=== PATIENT | female | born 1985 | race American Indian/Alaskan Native ===

== ENCOUNTER 2017-12-06 09:57 | Outpatient (CLI) | payer MEDICARE ==
--- NOTE | 2017-12-06 12:05 | XRay Report ---
ROUTINE CHEST, TWO VIEWS: HISTORY: Pneumonia, persistent cough. Cardiomegaly is stable since 11/23/16. Bilateral pulmonary edema or infiltrates have improved and nearly resolved since the previous exam. No consolidation, large pleural effusion or pneumothorax is identified. The bony structures are grossly intact. IMPRESSION: Cardiomegaly and bilateral pulmonary edema/infiltrates. Mild improvement is noted since 11/23/16 in the lung findings.
== END 2017-12-06 09:58 | disposition home or self-care (01) ==
LOC: XRAY 09:57
PROVIDERS: ATTEND Nurse Practitioner Acute Care
DX: I51.7 Cardiomegaly (principal); R05 Cough; Z87.01 Personal history of pneumonia (recurrent)
CPT/HCPCS: 71046

== ENCOUNTER 2018-09-23 15:28 | Emergency (ER) | payer MEDICARE ==
[2018-09-23] MEDS ORDERED: ZOFRAN IV ONE (16:00)
[2018-09-23] MEDS ORDERED: SUBLIMAZE IV ONE (16:00)
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
[2018-09-23 17:01] LABS: Hemoglobin 10.1 gm/dl (10.1-14.3); Red Blood Count 3.88 M/mm3 (3.65-5.03)
[2018-09-23 17:02] LABS: Basophils % (Auto) 1.5 % (0.0-1.8); Eosinophils % (Auto) 2.7 % (0.0-4.3); Hematocrit 31.4 % (30.3-42.9); Lymphocytes # (Auto) 21.4 K/mm3 (1.2-5.4); Lymphocytes % (Auto) 21.4 % (13.4-35.0); Mean Corpuscular HGB Conc 32 % (30-34); Mean Corpuscular Volume 81 fl (79-97); Mean Platelet Volume 9.7 fl (6-12); Monocytes # (Auto) 5.1 K/mm3 (0.0-0.8); Monocytes % (Auto) 5.1 % (0.0-7.3); Platelet Count 158 K/mm3 (140-440); Red Cell Distribution Width 19.7 % (13.2-15.2)
[2018-09-23 17:03] LABS: Basophils # (Auto) 1.5 K/mm3 (0.0-0.1); Eosinophils # (Auto) 2.7 K/mm3 (0.0-0.4)
[2018-09-23 17:17] LABS: Calcium 9.3 mg/dL (8.4-10.2)
[2018-09-23] MEDS ORDERED: HumuLIN R IV ONE (17:20)
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
--- NOTE | 2018-09-23 18:15 | XRay Report ---
FINAL REPORT EXAM: XR CHEST ROUTINE 2V HISTORY: transient hypoxia TECHNIQUE: PA and lateral views of the chest Comparison: Chest x-ray dated October 18, 2015 FINDINGS: There prominence of the interstitial markings in both lungs with the appearance of bilateral areas of central pulmonary consolidation. There is prominence of the pulmonary venous vasculature suggestive of pulmonary venous congestion. There is no evidence of pneumothorax. The cardiac silhouette is enlarged. The thoracic aorta is unremarkable. The bony structures are unremarkable. IMPRESSION: 1. Enlarged cardiac silhouette with bilateral interstitial and airspace process and evidence of pulmo nary venous congestion.. The appearance is suggestive of CHF. An infectious process cannot entirely b e excluded.
[2018-09-23 18:27] VITALS: BP 146/118
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
== END 2018-09-23 18:40 | disposition left against medical advice (07) ==
LOC: ED 15:28
DX: S40.012A Contusion of left shoulder, initial encounter (principal); S80.11XA Contusion of right lower leg, initial encounter; R09.02 Hypoxemia; J81.1 Chronic pulmonary edema; J45.909 Unspecified asthma, uncomplicated; I12.0 Hypertensive chronic kidney disease with stage 5 chronic kidney disease or end stage renal disease; E11.65 Type 2 diabetes mellitus with hyperglycemia; E11.22 Type 2 diabetes mellitus with diabetic chronic kidney disease; N18.6 End stage renal disease; Z99.2 Dependence on renal dialysis; Z79.4 Long term (current) use of insulin; V49.49XA Driver injured in collision with other motor vehicles in traffic accident, initial encounter; Y93.89 Activity, other specified; Y92.488 Other paved roadways as the place of occurrence of the external cause; Y99.8 Other external cause status
CPT/HCPCS: 36415; 71046; 72125; 73030; 73590; 80048; 82803; 82805; 82962; 84703; 85025; 96374; 96375; 99285; J2405; J3010; J1815

== ENCOUNTER 2018-10-19 21:48 | Inpatient (IN) | payer MEDICARE ==
[2018-10-19] MEDS ORDERED: ASPIRIN PO ONE (22:08)
--- NOTE | 2018-10-19 22:11 | Emergency Department Report ---
Blank Doc - Documentation Documentation: This is a 33 y.o. female that presents with chest pain, lightheadedness, and SOB for a few days. PMH of ESRD, DM, HTN, and asthma. This initial assessment diagnostic orders/clinical plan/treatment (s) is/Are subject change based on patient's health status, clinical progression and re- assessment by fellow clinical providers in the ED. Further treatment and work-up at subsequent clinical providers discretion. Patient/guardians urged not to elope from their condition may be serious if not clinically assessed and managed. Initial order include: labs, ekg Main ED for further evaluation.
[2018-10-19 22:44] LABS: Calcium 8.7 mg/dL (8.4-10.2)
[2018-10-19 22:55] LABS: Basophils # (Auto) 0.1 K/mm3 (0.0-0.1); Basophils % (Auto) 1.4 % (0.0-1.8); Eosinophils # (Auto) 0.3 K/mm3 (0.0-0.4); Eosinophils % (Auto) 5.8 % (0.0-4.3); Hematocrit 34.4 % (30.3-42.9); Hemoglobin 11.1 gm/dl (10.1-14.3); Lymphocytes % (Auto) 19.3 % (13.4-35.0); Mean Corpuscular HGB Conc 32 % (30-34); Mean Corpuscular Volume 81 fl (79-97); Monocytes # (Auto) 0.3 K/mm3 (0.0-0.8); Monocytes % (Auto) 6.1 % (0.0-7.3); Platelet Count 140 K/mm3 (140-440); Red Blood Count 4.23 M/mm3 (3.65-5.03)
[2018-10-19 22:56] LABS: Red Cell Distribution Width 21.1 % (13.2-15.2)
[2018-10-19 23:00] LABS: Chol/HDL Ratio 1.77 %
--- NOTE | 2018-10-20 00:31 | Emergency Department Report ---
ED General Adult HPI - General Chief complaint: Chest Pain Stated complaint: CP/PEDRO LUIS/LIGHTHEADED Time Seen by Provider: 10/19/18 22:06 Source: patient Mode of arrival: Ambulatory Limitations: No Limitations - History of Present Illness Initial comments: Patient is a 33-year-old female past medical history of end-stage renal disease Monday who presents with chest pain shortness of breath as her gallbladder last couple days. Patient states that chest pain is an 8 out of 10 as an achy type of pain she also has some nausea with this chest pain nothing makes the chest pain better and nothing makes it worse. She states that she last got dialysis on . - Related Data Home Medications Medication Instructions Recorded Confirmed Last Taken Insulin NPH Human Isophane 8 unit SQ QAM 04/21/14 10/15/15 10/14/15 [HumuLIN N] Insulin NPH Human Isophane 10 units SQ QHS 04/21/14 10/15/15 10/14/15 [HumuLIN N] Cinacalcet [Sensipar] 30 mg PO QDAY 09/09/14 05/30/16 1 Day Ago ~05/27/16 NIFEdipine XL [Procardia Xl] 60 mg PO QDAY 03/04/16 05/30/16 1 Day Ago ~05/27/16 Previous Rx's Medication Instructions Recorded Last Taken Type Calcium Acetate 1 tab PO TIDWM #90 capsule 07/28/14 1 Day Ago Rx ~05/27/16 Sevelamer Carbonate [Renvela] 800 mg PO TIDWM #60 tablet 07/28/14 1 Day Ago Rx ~05/27/16 Lisinopril [Zestril TAB] 1 tab PO BID #60 tablet 09/13/14 1 Day Ago Rx ~05/27/16 cloNIDine [Catapres] 0.3 mg PO TID #90 tablet 09/13/14 1 Day Ago Rx ~05/27/16 hydrALAZINE [Apresoline TAB] 50 mg PO Q8H #90 tab 09/13/14 1 Day Ago Rx ~05/27/16 Metoprolol [Lopressor TAB] 100 mg PO BID #60 tablet 10/20/15 1 Day Ago Rx ~05/27/16 Omeprazole Magnesium [PriLOSEC Otc] 20 mg PO QDAY #10 tablet. 05/28/1603/05 Rx Carbamide Peroxide 6.5% [Ear Wax 5 drops AU BID #1 bottle 06/01/16 Unknown Rx Drops] Insulin Glargine [Lantus VIAL] 30 units SUB-Q DAILY #100 units 06/01/16 Unknown Rx Insulin Glulisine [Apidra] 5 units SUB-Q AC #100 units 06/01/16 Unknown Rx Aspirin [Aspirin BABY CHEW TAB] 81 mg PO QDAY 30 Days tab.chew 11/25/16 Unknown Rx AtorvaSTATin [Lipitor] 20 mg PO QHS #30 tablet 11/25/16 Unknown Rx Allergies Allergy/AdvReac Type Severity Reaction Status Date / Time No Known Allergies Allergy Verified 12/31/13 07:49 ED Review of Systems ROS: Stated complaint: CP/PEDRO LUIS/LIGHTHEADED Other details as noted in HPI Constitutional: denies: chills, fever Eyes: denies: eye pain, eye discharge, vision change ENT: denies: ear pain, throat pain Respiratory: shortness of breath. denies: cough, wheezing Cardiovascular: chest pain. denies: palpitations Endocrine: no symptoms reported Gastrointestinal: denies: abdominal pain, nausea, diarrhea Genitourinary: denies: urgency, dysuria, discharge Musculoskeletal: denies: back pain, joint swelling, arthralgia Skin: denies: rash, lesions Neurological: denies: headache, weakness, paresthesias Psychiatric: denies: anxiety, depression Hematological/Lymphatic: denies: easy bleeding, easy bruising ED Past Medical Hx - Past Medical History Previous Medical History?: Yes Hx Hypertension: Yes Hx Diabetes: Yes Hx Renal Disease: Yes (ESRD on HD,T-Th-S,LUE Shunt) Hx Seizures: Yes (elevated bp) Hx Asthma: Yes Additional medical history: DIALYSIS PT. - Surgical History Past Surgical History?: Yes Additional Surgical History: x2 - Social History Smoking Status: Never Smoker Substance Use Type: None - Medications Home Medications: Home Medications Medication Instructions Recorded Confirmed Last Taken Type Insulin NPH Human Isophane 8 unit SQ QAM 04/21/14 10/15/15 10/14/15 History [HumuLIN N] Insulin NPH Human Isophane 10 units SQ QHS 04/21/14 10/15/15 10/14/15 History [HumuLIN N] Calcium Acetate 1 tab PO TIDWM #90 capsule 12/08/14 10/10/16 1 Day Ago Rx ~05/27/16 Sevelamer Carbonate [Renvela] 800 mg PO TIDWM #60 tablet 07/28/14 05/30/16 1 Day Ago Rx ~05/27/16 Cinacalcet [Sensipar] 30 mg PO QDAY 09/09/14 05/30/16 1 Day Ago History ~05/27/16 Lisinopril [Zestril TAB] 1 tab PO BID #60 tablet 09/13/14 05/30/16 1 Day Ago Rx ~05/27/16 cloNIDine [Catapres] 0.3 mg PO TID #90 tablet 09/13/14 05/30/16 1 Day Ago Rx ~05/27/16 hydrALAZINE [Apresoline TAB] 50 mg PO Q8H #90 tab 09/13/14 05/30/16 1 Day Ago Rx ~05/27/16 Metoprolol [Lopressor TAB] 100 mg PO BID #60 tablet 10/20/15 05/30/16 1 Day Ago Rx ~05/27/16 NIFEdipine XL [Procardia Xl] 60 mg PO QDAY 03/04/16 05/30/16 1 Day Ago History ~05/27/16 Omeprazole Magnesium [PriLOSEC Otc] 20 mg PO QDAY #10 tablet. 05/28/16 05/30/16 05/27/16 Rx Carbamide Peroxide 6.5% [Ear Wax 5 drops AU BID #1 bottle 06/01/16 Unknown Rx Drops] Insulin Glargine [Lantus VIAL] 30 units SUB-Q DAILY #100 units 06/01/16 Unknown Rx Insulin Glulisine [Apidra] 5 units SUB-Q AC #100 units 06/01/16 Unknown Rx Aspirin [Aspirin BABY CHEW TAB] 81 mg PO QDAY 30 Days tab.chew 11/25/16 Unknown Rx AtorvaSTATin [Lipitor] 20 mg PO QHS #30 tablet 11/25/16 Unknown Rx ED Physical Exam - General Limitations: No Limitations General appearance: alert, in no apparent distress - Head Head exam: Present: atraumatic, normocephalic - Eye Eye exam: Present: normal appearance - ENT ENT exam: Present: mucous membranes moist - Neck Neck exam: Present: normal inspection - Respiratory Respiratory exam: Present: normal lung sounds bilaterally. Absent: respiratory distress - Cardiovascular Cardiovascular Exam: Present: regular rate, normal rhythm. Absent: systolic murmur, diastolic murmur, rubs, gallop - GI/Abdominal GI/Abdominal exam: Present: soft, normal bowel sounds - Extremities Exam Extremities exam: Present: normal inspection - Back Exam Back exam: Present: normal inspection - Neurological Exam Neurological exam: Present: alert, oriented X3 - Psychiatric Psychiatric exam: Present: normal affect, normal mood - Skin Skin exam: Present: warm, dry, intact, normal color. Absent: rash ED Course Vital Signs 10/19/18 22:06 Temperature 97.9 F Pulse Rate 58 L Respiratory 18 Rate Blood Pressure 142/71 O2 Sat by Pulse 97 Oximetry - Consultations Consultation #1: 10/20/18 02:[address] Anguiano non food receiving clerk about the patient he states that he will see the patient in the morning. ED Medical Decision Making - Lab Data Result diagrams: 10/19/18 22:20 10/19/18 22:20 Lab Results 10/19/18 10/19/18 10/20/18 Range/Units 22:20 22:20 00:55 WBC 5.4 (4.5-11.0) K/mm3 RBC 4.23 (3.65-5.03) M/mm3 Hgb 11.1 (10.1-14.3) gm/dl Hct 34.4 (30.3-42.9) % MCV 81 (79-97) fl MCH 26 L (28-32) pg MCHC 32 (30-34) % RDW 21.1 H (13.2-15.2) % Plt Count 140 (140-440) K/mm3 Lymph % (Auto) 19.3 (13.4-35.0) % Hubbard % (Auto) 6.1 (0.0-7.3) % Eos % (Auto) 5.8 H (0.0-4.3) % Baso % (Auto) 1.4 (0.0-1.8) % Lymph # 1.0 L (1.2-5.4) K/mm3 Hubbard # 0.3 (0.0-0.8) K/mm3 Eos # 0.3 (0.0-0.4) K/mm3 Baso # 0.1 (0.0-0.1) K/mm3 Seg Neutrophils % 67.4 (40.0-70.0) % Seg Neutrophils # 3.6 (1.8-7.7) K/mm3 Sodium 138 (137-145) mmol/L Potassium 3.0 L (3.6-5.0) mmol/L Chloride 92.4 L (98-107) mmol/L Carbon Dioxide 30 (22-30) mmol/L Anion Gap 19 mmol/L BUN 25 H (7-17) mg/dL Creatinine 6.3 H (0.7-1.2) mg/dL Estimated GFR 9 ml/min BUN/Creatinine Ratio 4 % Glucose 124 H (65-100) mg/dL POC Glucose 84 (70-105) Calcium 8.7 (8.4-10.2) mg/dL Troponin T 0.251 H* (0.00-0.029) ng/mL Triglycerides 54 (2-149) mg/dL Cholesterol 153 (50-199) mg/dL LDL Cholesterol Direct 66 (50-130) mg/dL HDL Cholesterol 86 H (40-59) mg/dL Cholesterol/HDL Ratio 1.77 % - EKG Data -: EKG Interpreted by Pa - EKG Data 10/20/18 02:20 KG shows sinus rhythm, left atrial enlargement LVH and prolonged QT interval - Radiology Data Radiology results: report reviewed, image reviewed Chest x-ray: Shows stable cardiomegaly and bilateral pulmonary infiltrates - Medical Decision Making Chief medical diagnosis: Non-STEMI Differential medical diagnosis: Pulmonary edema, secondary to end-stage renal disease,Uremia, hypokalemia Critical Care Time: Yes (35) Critical care time in (mins) excluding proc time.: 35 Critical care attestation.: If time is entered above; I have spent that time in minutes in the direct care of this critically ill patient, excluding procedure time. Critical care time spent with consultants 5 minutes Critical care time spent at patient's bedside 30 minutes ED Disposition Clinical Impression: NSTEMI (non-ST elevated myocardial infarction), ESRD on hemodialysis, End stage renal disease, Uremia Pulmonary edema Qualifiers: Chronicity: acute Qualified Code(s): J81.0 - Acute pulmonary edema Disposition: OP ADMIT IP TO THIS HOSP Is pt being admited?: Yes Does the pt Need Aspirin: No Condition: Stable Instructions: Pulmonary Edema (ED) Referrals: CADE CARPIO MD [Primary Care Provider] - 3-5 Days
[2018-10-20] MEDS ORDERED: SUBLIMAZE IV ONE (01:34)
[2018-10-20] MEDS ORDERED: ZOFRAN IV ONE (01:39)
--- NOTE | 2018-10-20 01:55 | XRay Report ---
PROCEDURE: XR CHEST ROUTINE 2V TECHNIQUE: PA and lateral chest radiographs were obtained. HISTORY: chest pain COMPARISONS: 09/23/2018. FINDINGS: Heart: The heart is markedly enlarged.. Mediastinum/Vessels: The lungs remain diffusely congested.. Lungs/Pleural space: There is stable extensive bilateral airspace disease. Pleural fluid is not seen .. Bony thorax: No acute osseous abnormality. IMPRESSION: Stable cardiomegaly with diffuse bilateral airspace disease.. Whether the findings on th e basis of pulmonary edema versus bilateral pneumonia is uncertain. This document is electronically signed by Brandon Ac MD., October 20 2018 01:52:44 AM ET
[2018-10-20] MEDS ORDERED: BABY ASPIRIN PO ONE (02:22)
[2018-10-20] MEDS ORDERED: TYLENOL PO PRN (02:40)
[2018-10-20] MEDS ORDERED: ZOFRAN IV PRN (02:40)
[2018-10-20] MEDS ORDERED: D50W (25GM) Syringe IV PRN (02:40)
[2018-10-20] MEDS ORDERED: SODIUM CHLORIDE FLUSH SYRINGE 10 ML IV PRN (02:40)
--- NOTE | 2018-10-20 02:49 | History and Physical Report ---
History of Present Illness History of present illness: 33 year old woman with history of end-stage renal disease on dialysis Monday, , Monday, hypertension, diabetes, asthma on home oxygen comes emergency room with complaints of chest pain. Patient is in the epigastric area with episode 2 days ago, sharp, constant, intensity 5/10, no radiation, chemotherapy admitted for exacerbating or relieving factors. Admits to shortness of breath, palpitation. She had a stress test done in 2016 which was negative Review of systems Constitutional: no weight loss, chills, fever Ears, eyes, nose, mouth and throat: no nasal congestion, no nasal discharge, no sinus pressure, no vision change, no red eye. Neck: No neck pain or rigidity. Cardiovascular: no palpitations, chest pain Respiratory: no cough, shortness of breath Gastrointestinal: no hematochezia, abdominal pain Genitourinary : no frequency , no hematuria Musculoskeletal: no joint swelling or muscle ache Integumentary: no rash, no pruritis Neurological: no parathesias, no focal weakness Endocrine: no cold or heat intolerance, no polyuria or polydipsia Hematologic/Lymphatic: no easy bruising, no easy bleeding, no gland swelling Allergic/Immunologic: no urticaria, no angioedema. PAST MEDICAL HISTORY: end-stage renal disease on dialysis Monday, , Monday, hypertension, diabetes, asthma on home oxygen PAST SURGICAL HISTORY: 2, AV fistula SOCIAL HISTORY: Denies alcohol, drugs, tobacco FAMILY HISTORY: Hypertension Medications and Allergies Allergies Allergy/AdvReac Type Severity Reaction Status Date / Time No Known Allergies Allergy Verified 12/31/13 07:49 Home Medications Medication Instructions Recorded Confirmed Last Taken Type Insulin NPH Human Isophane 10 units SQ TIDWM 04/21/14 10/20/18 1 Day Ago History [HumuLIN N] ~10/19/18 Sevelamer Carbonate [Renvela] 800 mg PO TIDWM #60 tablet 07/28/14 10/20/18 1 Day Ago Rx ~10/19/18 cloNIDine [Catapres] 0.3 mg PO TID #90 tablet 09/13/14 10/20/18 1 Day Ago Rx ~10/19/18 hydrALAZINE [Apresoline TAB] 50 mg PO Q8H #90 tab 09/13/14 10/20/18 1 Day Ago Rx ~10/19/18 Metoprolol [Lopressor TAB] 100 mg PO BID #60 tablet 10/20/15 10/20/18 1 Day Ago Rx ~10/19/18 NIFEdipine XL [Procardia Xl] 60 mg PO QDAY 03/04/16 10/20/18 1 Day Ago History ~10/19/18 Omeprazole Magnesium [PriLOSEC Otc] 20 mg PO QDAY #10 tablet. 05/28/16 10/20/18 1 Day Ago Rx ~10/19/18 Insulin Glargine [Lantus VIAL] 30 units SUB-Q DAILY #100 units 06/01/16 10/20/18 1 Day Ago Rx ~10/19/18 Famotidine [Pepcid] 20 mg PO DAILY #15 tablet 10/20/18 Unknown Rx Exam - Physical Exam Narrative exam: General Apperance: The patient lying in bed, breathing comfortable HEENT: Normocephalic, atraumatic. Pupils equally round and reactive to light, EOMI, no sclericterus or JVD or thyromegaly or nodule. , no carotid bruit, mucous membranes moist, no exudate or erythema Heart: S1-S2, regular is rhythm Lungs: Clear to auscultation bilaterally, breathing comfortable Abdomen: Positive bowel sounds, soft, nontender, nondistended, no organomegaly Extremities: No edema cyanosis clubbing Skin: no rash, nodule, warm and dry Neuro: cranial nerves 2-12 intact, speech is fluent, motor/sensory intact - Constitutional Vitals: Temp Pulse Resp BP Pulse Ox 97.9 F 58 L 18 142/71 97 10/19/18 22:06 10/19/18 22:06 10/19/18 22:06 10/19/18 22:06 10/19/18 22:06 Results - Labs CBC & Chem 7: 10/21/18 06:04 10/21/18 06:04 Labs: Abnormal lab results 10/19/18 10/19/18 Range/Units 22:20 22:20 MCH 26 L (28-32) pg RDW 21.1 H (13.2-15.2) % Eos % (Auto) 5.8 H (0.0-4.3) % Lymph # 1.0 L (1.2-5.4) K/mm3 Potassium 3.0 L (3.6-5.0) mmol/L Chloride 92.4 L (98-107) mmol/L BUN 25 H (7-17) mg/dL Creatinine 6.3 H (0.7-1.2) mg/dL Glucose 124 H (65-100) mg/dL Troponin T 0.251 H* (0.00-0.029) ng/mL HDL Cholesterol 86 H (40-59) mg/dL - Imaging and Cardiology EKG: report reviewed Chest x-ray: report reviewed Assessment and Plan Assessment Chest pain r/o ACS end-stage renal disease on dialysis hypertension diabetes asthma on home oxygen Plan Check cardiac enzymes, consult cardiology Consult renal for dialysis Check fingerstick, initiate insulin sinus scale DVT prophylaxis
[2018-10-20] MEDS ORDERED: MORPHINE ONE (04:43)
[2018-10-20] MEDS: MORPHINE IV PRN ×2 (05:00→12:12)
[2018-10-20] MEDS ORDERED: LEXISCAN IV ONE (09:00)
--- NOTE | 2018-10-20 11:44 | Event Note ---
Date: 10/20/18 Cardio note dictated will reviewstress test Thank you LENNIE Mtz
[2018-10-20] MEDS ORDERED: AFLURIA QUAD 2018-2019 SYRINGE IM ONE (12:00)
[2018-10-20] MEDS: LOVENOX SUB-Q SCH (12:09)
[2018-10-20] MEDS: SODIUM CHLORIDE FLUSH SYRINGE 10 ML IV SCH (12:12)
[2018-10-20] MEDS ORDERED: NACL 0.9% 100 ML IV PRN ×2 (12:22→15:49)
--- NOTE | 2018-10-20 12:54 | Consultation ---
History of Present Illness - Reason for Consult Consult date: 10/20/18 end stage renal disease Requesting physician: WILFRIDO TRAN - History of Present Illness 33 year old woman with history of end-stage renal disease on dialysis Monday, , Monday, hypertension, diabetes, asthma on home oxygen comes emergency room with complaints of chest pain. Patient is in the epigastric area with episode 2 days ago, sharp, constant, intensity 5/10, no radiation, chem otherapy admitted for exacerbating or relieving factors. Admits to shortness of breath, palpitation. She had a stress test done in 2015 which was negative Past History Past Medical History: diabetes, dialysis, hypertension, other (asthma) Past Surgical History: Other (history of creation of AV fistula) Social history: no significant social history Family history: no significant family history Medications and Allergies Allergies Allergy/AdvReac Type Severity Reaction Status Date / Time No Known Allergies Allergy Verified 12/31/13 07:49 Home Medications Medication Instructions Recorded Confirmed Last Taken Type Insulin NPH Human Isophane 8 unit SQ QAM 04/21/14 10/20/18 1 Day Ago History [HumuLIN N] ~10/19/18 Insulin NPH Human Isophane 10 units SQ TIDWM 04/21/14 10/20/18 1 Day Ago History [HumuLIN N] ~10/19/18 Sevelamer Carbonate [Renvela] 800 mg PO TIDWM #60 tablet 07/28/14 10/20/18 1 Day Ago Rx ~10/19/18 cloNIDine [Catapres] 0.3 mg PO TID #90 tablet 09/13/14 10/20/18 1 Day Ago Rx ~10/19/18 hydrALAZINE [Apresoline TAB] 50 mg PO Q8H #90 tab 09/13/14 10/20/18 1 Day Ago Rx ~10/19/18 Metoprolol [Lopressor TAB] 100 mg PO BID #60 tablet 10/20/15 10/20/18 1 Day Ago Rx ~10/19/18 NIFEdipine XL [Procardia Xl] 60 mg PO QDAY 03/04/16 10/20/18 1 Day Ago History ~10/19/18 Omeprazole Magnesium [PriLOSEC Otc] 20 mg PO QDAY #10 tablet. 05/28/16 10/20/18 1 Day Ago Rx ~10/19/18 Insulin Glargine [Lantus VIAL] 30 units SUB-Q DAILY #100 units 06/01/16 10/20/18 1 Day Ago Rx ~10/19/18 Insulin Glulisine [Apidra] 5 units SUB-Q AC #100 units 06/01/16 10/20/18 1 Day Ago Rx ~10/19/18 Active Meds: Active Medications Acetaminophen (Tylenol) 650 mg PO Q4H PRN PRN Reason: Pain MILD(1-3)/Fever >100.5/HATHAWAY Dextrose (D50w (25gm) Syringe) 50 ml IV PRN PRN PRN Reason: Hypoglycemia Enoxaparin Sodium (Lovenox) 30 mg SUB-Q QDAY [facility] Last Admin: 10/20/18 12:09 Dose: 30 mg Documented by: Sodium Chloride (Nacl 0.9%) 100 mls @ 999 mls/hr IV IMMANUEL PRN PRN Reason: Hypotension Morphine Sulfate (Morphine) 2 mg IV Q4H PRN PRN Reason: Pain, Moderate (4-6) Last Admin: 10/20/18 12:12 Dose: 2 mg Documented by: Ondansetron HCl (Zofran) 4 mg IV Q4H PRN PRN Reason: Nausea And Vomiting Last Admin: 10/20/18 12:18 Dose: 4 mg Documented by: Sodium Chloride (Sodium Chloride Flush Syringe 10 Ml) 10 ml IV BID [facility] Last Admin: 10/20/18 12:12 Dose: 10 ml Documented by: Sodium Chloride (Sodium Chloride Flush Syringe 10 Ml) 10 ml IV PRN PRN PRN Reason: LINE FLUSH Review of Systems All systems: negative (except as noted above) Exam - Vital Signs Vital signs: Vital Signs Temp Pulse Resp BP Pulse Ox 98.8 F 80 16 126/74 86 10/19/18 21:53 10/19/18 21:53 10/19/18 21:53 10/19/18 21:53 10/19/18 21:53 - General Appearance General appearance: well-developed, well-nourished, appears stated age EENT: PERRL, mucous membranes moist Neck: Present: neck supple, trachea midline. Absent: JVD/HJR, Masses Respiratory: Rales (find basal crackles) Heart: regular, normal heart rate, S1S2, no murmurs Gastrointestinal: Present: normal, normoactive bowel sounds Integumentary: no rash, other (AV fistula left upper arm. Good bruit and thrill. Aneurysms noted.) Results - Lab Results 10/19/18 22:20 10/19/18 22:20 Most recent lab results Calcium 8.7 mg/dL (8.4-10.2) 10/19/18 22:20 Assessment and Plan Impression * End-stage renal disease on maintenance hemodialysis * Shortness of breath most likely secondary to CHF * Chest pain * Hypertension * Diabetes * Anemia secondary to ESRD Recommendations * Schedule patient for hemodialysis for today * Remove fluid as tolerated * Continue dialysis on TTS schedule as outpatient * Procrit per protocol * Avoid nephrotoxins * Binders with meals * Adjust diet and meds were ESRD state * No IV, BP or venipuncture and his access arm * Thank you very much for the consultation. Shall follow along with you
[2018-10-20] MEDS ORDERED: LOPRESSOR PO SCH (13:00)
[2018-10-20] MEDS ORDERED: NON-FORMULARY (Omeprazole Magnesium [Prilosec Otc] 20 MG) PO SCH (13:00)
--- NOTE | 2018-10-20 13:21 | Discharge Summary ---
Providers - Providers Date of Admission: 10/20/18 02:40 Date of discharge: 10/20/18 Attending physician: ROSIE FUNG 10/20/18 02:40 Consult to Physician [CONS] Routine Comment: Consulting Provider: CYNDEE CONTRERAS Physician Instructions: Reason For Exam: cp 10/20/18 03:40 Consult to Physician [CONS] Routine Comment: aware Consulting Provider: JAMEL MCCARTHY Physician Instructions: Reason For Exam: hd Primary care physician: CADE CARPIO Hospitalization Condition: Fair Hospital course: Patient is 33 yo with hypertension, diabetes, ESRD on hemodialysis. She presented with chest pain. Patient was evaluated in Emergency Department. Troponin was elevated. She was given Aspirin and admitted to rule out acute coronary syndrome. Stress test on the same day was negative. She was discharged home however did not go because family unable to pick him up. She subsequently went home on 10/21/2018. Chest pain, non cardiac secondary to GERD. Disposition: TO HOME OR SELFCARE - Discharge Diagnoses (1) ESRD (end stage renal disease) on dialysis Status: Acute (2) Chest pain Status: Acute Qualifiers: Chest pain type: unspecified Qualified Code(s): R07.9 - Chest pain, unspecified Comment: secondary to GERD (3) GERD (gastroesophageal reflux disease) Status: Acute (4) Hypertension Status: Acute (5) Hypertension Status: Acute (6) Diabetes mellitus type 2 in obese Status: Acute Core Measure Documentation - Palliative Care Palliative Care/ Comfort Measures: Not Applicable - Core Measures Any of the following diagnoses?: none Exam - Constitutional Vitals: Temp Pulse Resp BP Pulse Ox 98.5 F 88 18 159/77 90 10/20/18 08:33 10/20/18 06:00 10/20/18 08:33 10/20/18 11:05 10/20/18 05:46 Plan Activity: no restrictions Diet: low fat, low cholesterol, low salt, diabetic, renal Additional Instructions: 1.Follow up with PCP or [facility] in 1 week. 2.Continue routine hemodialysis as scheduled Follow up with: CADE CARPIO MD [Primary Care Provider] - 7 Days Prescriptions: Famotidine [Pepcid] 20 mg PO DAILY #15 tablet
[2018-10-20] MEDS: HumaLOG SUB-Q SCH ×2 (13:37→17:52)
[2018-10-20] MEDS: PROCARDIA XL PO SCH (13:38)
[2018-10-20] MEDS: APRESOLINE PO SCH ×2 (13:38→20:17)
[2018-10-20] MEDS: LOPRESSOR PO SCH (13:40)
[2018-10-20] MEDS ORDERED: NACL 0.9 (PRIMING MACHINE ONLY DIALYSIS) MC ONE (17:42)
[2018-10-20] MEDS: RENVELA PO SCH (20:14)
--- NOTE | 2018-10-20 23:21 | Treadmill Report ---
PROCEDURE PERFORMED: Nuclear stress test. DESCRIPTION OF PROCEDURE: The patient is brought to the nuclear cardiology lab and a Lexiscan stress test is performed. The patient tolerated the procedure well. Post-stress images reveal homogeneous distribution of the isotope with no significant reversibility during the rest. Accompanying gated study shows excellent systolic function with no wall motion abnormalities. Ejection fraction is calculated to be 75%. IMPRESSION: 1. Nuclear stress test is noted to be negative for reversible defects to indicate ischemia. 2. Good systolic function with an ejection fraction of 75%. 3. Suggest clinical correlation. JOB# [id number] KBM/NTS
--- NOTE | 2018-10-20 23:21 | Consultation ---
CARDIOLOGY EVALUATION HISTORY OF PRESENT ILLNESS: The patient is a 33-year-old female who has been having chest pains intermittently from Monday. These pains are described as sharp pains increased with movement, sometimes in the epigastric region and at times in the lower chest. No significant radiation is noted. The patient is known to have longstanding hypertension and diabetes as well as bronchial asthma. She uses home oxygen. She is known to have chronic renal failure and has been on dialysis for the last 6 years secondary to hypertensive renal disease. REVIEW OF SYSTEMS: HEAD, EYES, EARS, NOSE AND THROAT: No symptoms. GASTROINTESTINAL: No abdominal pain, nausea, or vomiting. Bowel habits have been regular. GENITOURINARY: No symptoms. CENTRAL NERVOUS SYSTEM: No history of cerebrovascular accident or convulsive disorder. ENDOCRINE: No history of diabetes. No history of thyroid problems. HEME/ONCOLOGIC: No symptoms. PERSONAL HISTORY: Nonsmoker, nonalcoholic. FAMILY HISTORY: Positive for hypertension. PHYSICAL EXAMINATION: GENERAL: Adult female, well built and nourished, in no acute distress. Pleasant and cooperative. VITAL SIGNS: Blood pressure 159/77, pulse 88, and afebrile. HEAD, EYES, EARS, NOSE AND THROAT: Unremarkable. NECK: Supple. No thyromegaly. Both carotids are palpable and equal. Neck veins are flat. CHEST: Symmetrical. LUNGS: Essentially clear. HEART: S1 and S2 are heard well. No S3. ABDOMEN: Soft, nontender. No hepatosplenomegaly. EXTREMITIES: No calf tenderness. LABORATORY DATA: EKG: Sinus rhythm, no acute abnormalities are noted. Chest x-ray: Cardiomegaly. LABORATORY DATA: WBC 5.4, hemoglobin 11.1, hematocrit 34.4. Sodium 138, potassium 3.0, cholesterol 153, HDL 86, LDL 66. Troponin 0.251 and 0.191. IMPRESSION: 1. Chest pain, atypical. 2. Hypertension. 3. Hyperlipidemia. 4. End-stage renal disease, on dialysis. 5. History of bronchial asthma, on home oxygen. Pain itself is atypical. Clinically, cardiac status is stable. We will review the nuclear stress test and if it is negative, cardiac [place], she may be able to go home. Thank you for allowing me to participate in the care of this pleasant young lady. JOB# [id number] KBM/NTS
[2018-10-20] MEDS ORDERED: AMBIEN PO PRN (23:56)
[2018-10-21] MEDS: LOPRESSOR PO SCH ×2 (00:03→09:42)
[2018-10-21] MEDS: SODIUM CHLORIDE FLUSH SYRINGE 10 ML IV SCH ×2 (00:03→11:35)
[2018-10-21 04:53] VITALS: BP 150/92
[2018-10-21] MEDS: APRESOLINE PO SCH (05:38)
[2018-10-21 06:42] LABS: Basophils # (Auto) 0.1 K/mm3 (0.0-0.1); Basophils % (Auto) 1.5 % (0.0-1.8); Eosinophils # (Auto) 0.2 K/mm3 (0.0-0.4); Eosinophils % (Auto) 5.2 % (0.0-4.3); Hematocrit 29.6 % (30.3-42.9); Hemoglobin 9.5 gm/dl (10.1-14.3); Lymphocytes # (Auto) 0.9 K/mm3 (1.2-5.4); Lymphocytes % (Auto) 21.4 % (13.4-35.0); Mean Corpuscular HGB Conc 32 % (30-34); Mean Corpuscular Volume 82 fl (79-97); Monocytes # (Auto) 0.4 K/mm3 (0.0-0.8); Monocytes % (Auto) 8.5 % (0.0-7.3); Platelet Count 116 K/mm3 (140-440)
[2018-10-21 06:44] LABS: Red Cell Distribution Width 21.5 % (13.2-15.2)
[2018-10-21 07:03] LABS: Calcium 8.2 mg/dL (8.4-10.2)
[2018-10-21] MEDS: RENVELA PO SCH (07:51)
--- NOTE | 2018-10-21 09:01 | XRay Report ---
PROCEDURE: XR CHEST 1V AP TECHNIQUE: Chest radiograph single view. HISTORY: shortness of breath COMPARISONS: 10/20/2018 . FINDINGS: No mediastinal shift. Cardiac silhouette is not enlarged. No pneumothorax. Blunting of both costophre pernell angles. Patchy airspace disease in the right greater than left lung. IMPRESSION: Right greater than left lung airspace disease with small effusions appear similar to prior. No pneumo thorax. This document is electronically signed by Devan Xiong MD., October 21 2018 08:59:55 AM ET
[2018-10-21] MEDS: PROCARDIA XL PO SCH (09:42)
[2018-10-21] MEDS: LOVENOX SUB-Q SCH (09:42)
[2018-10-21] MEDS: HumaLOG SUB-Q SCH (09:42)
[2018-10-21] MEDS ORDERED: PROTONIX PO SCH (10:00)
--- NOTE | 2018-10-21 10:13 | Event Note ---
Date: 10/21/18 Patient discharged yesterday but did not go because of family reason. She had low grade fever 100.0 overnight but asymptomatic. Stable to nc home today.
== END 2018-10-21 11:30 | disposition home or self-care (01) | DRG 391 ==
LOC: ED 21:48 → 4A 10-20 02:40
PROVIDERS: ADMIT Internal Medicine; ATTEND Internal Medicine
PROC: 5A1D70Z Performance of Urinary Filtration, Intermittent, Less than 6 Hours Per Day (ICD-10-PCS; principal; 2018-10-20)
DX: K21.9 Gastro-esophageal reflux disease without esophagitis (principal); N18.6 End stage renal disease; J81.0 Acute pulmonary edema; I12.0 Hypertensive chronic kidney disease with stage 5 chronic kidney disease or end stage renal disease; R07.89 Other chest pain; E11.22 Type 2 diabetes mellitus with diabetic chronic kidney disease; J45.909 Unspecified asthma, uncomplicated; D63.1 Anemia in chronic kidney disease; E78.5 Hyperlipidemia, unspecified; Z99.81 Dependence on supplemental oxygen; Z99.2 Dependence on renal dialysis; Z82.49 Family history of ischemic heart disease and other diseases of the circulatory system; Z79.4 Long term (current) use of insulin; Z79.899 Other long term (current) drug therapy; Z95.828 Presence of other vascular implants and grafts
CPT/HCPCS: 36415; 71045; 71046; 78452; 80048; 80061; 82962; 84484; 85025; 90471; 90686; 93005; 93010; 93017; 94760; 96374; 96375; 99291; G0378; A9502; G0008; J1650; J1815; J2270; J2405; J2785; J3010; J7030

== ENCOUNTER 2019-05-27 21:21 | Emergency (ER) | payer MEDICARE ==
[2019-05-27] MEDS ORDERED: LORazepam 2 MG/ML VIAL IV ONE ×2 (21:41→21:48)
[2019-05-27] MEDS ORDERED: ROCURONIUM 50 MG/5 ML INJ IV ONE (22:05)
[2019-05-27] MEDS ORDERED: ETOMIDATE 20 MG/10 ML INJ IV ONE (22:05)
[2019-05-27] MEDS ORDERED: cefTRIAXone/NS 1 GM/50 ML 1 GM/50 ML BAG IV ONE (22:14)
[2019-05-27] MEDS ORDERED: VANCOMYCIN/NS 1 GM/250 ML 1 GM/250 ML BAG IV ONE (22:14)
[2019-05-27] MEDS ORDERED: levETIRAcetam 1000 MG/NS 0.75% 1,000 MG/100 ML BAG IV ONE (22:15)
[2019-05-27 22:26] LABS: Hematocrit 33.1 % (30.3-42.9); Hemoglobin 10.2 gm/dl (10.1-14.3); Mean Corpuscular HGB Conc 31 % (30-34); Mean Corpuscular Volume 89 fl (79-97); Platelet Count 183 K/mm3 (140-440); Red Blood Count 3.73 M/mm3 (3.65-5.03); Red Cell Distribution Width 19.6 % (13.2-15.2)
[2019-05-27 22:43] LABS: Albumin 4.6 g/dL (3.9-5); Calcium 8.4 mg/dL (8.4-10.2)
--- NOTE | 2019-05-27 22:59 | Cat Scan Report ---
CT HEAD WITHOUT CONTRAST INDICATION / CLINICAL INFORMATION: MAIN: FOUND UNRESPONSIVE, AMS . TECHNIQUE: All CT scans at this location are performed using CT dose reduction for ALARA by means of automated e xposure control. COMPARISON: None available. FINDINGS: HEMORRHAGE: There is been a massive intraventricular hemorrhage. A cast of clot fills a dilated right lateral ventricle. Blood is present within the left lateral ventricle. A cast of clot fills a dilate d third ventricle. Blood is also present in the fourth ventricle. Dilatation of the third and lateral ventricles indicates the presence of hydrocephalus complicating this intraventricular hemorrhage. Th ere is no definite indication of a parenchymal hematoma. No definite evidence of subarachnoid blood i s observed. EXTRA-AXIAL SPACES: Cortical sulci are largely effaced likely secondary to hydrocephalus. VENTRICULAR SYSTEM: Intraventricular hemorrhage and hydrocephalus as described above. CEREBRAL PARENCHYMA: No areas of abnormal brain parenchymal attenuation are identified. There is no i ndication of recent infarction. MIDLINE SHIFT OR HERNIATION: Clot in the right lateral ventricle produces mass effect. There is about 6 mm of right to left midline shift at the level of the septum pellucidum.. CEREBELLUM / BRAINSTEM: Brainstem and cerebellum have an unremarkable appearance. INTRACRANIAL VESSELS:No abnormalities are identified on this noncontrast head CT. ORBITS: visualized portions of the orbits have an unremarkable appearance. SOFT TISSUES of HEAD: No significant abnormality. CALVARIUM: Evaluation of bone windows reveals no abnormalities. PARANASAL SINUSES / MASTOID AIR CELLS: Paranasal sinuses are free from inflammatory mucosal disease. Mastoid air cells are normally pneumatized. ADDITIONAL FINDINGS: None. IMPRESSION: 1. Massive intraventricular hemorrhage of undetermined etiology complicated by hydrocephalus. Critical result: Time of discovery: 2144 Central standard time. Notification: I called report of this study to Dr. Obrien of the [facility] e mergency department at about 2150 Central standard time. Signer Name: Brodie Corona MD Signed: 05/27/2019 10:55 PM Workstation Name: [id number]
[2019-05-27] MEDS ORDERED: VANCOMYCIN 1,750 MG in SODIUM CHLORIDE 0.9% 500 ML 500 ML IV ONE (23:00)
[2019-05-27] MEDS ORDERED: niCARdipine 50 MG in SODIUM CHLORIDE 0.9% 250ML 230 ML IV SCH (23:00)
[2019-05-27] MEDS ORDERED: INSULIN REGULAR, HUMAN 100 UNITS in SODIUM CHLORIDE 0.9% 99 ML IV SCH ×2 (23:00→23:45)
--- NOTE | 2019-05-27 23:01 | Emergency Department Report ---
<BRAXTON GARSIA - Last Filed: 05/27/19 23:56> ED Altered Mental Status HPI - General Chief Complaint: Altered Mental Status Stated Complaint: AMS Time Seen by Provider: 05/27/19 22:36 - Related Data Home Medications Medication Instructions Recorded Confirmed Last Taken Insulin NPH Human Isophane 10 units SQ TIDWM 04/21/14 10/20/18 1 Day Ago [HumuLIN N] ~10/19/18 NIFEdipine XL [Procardia Xl] 60 mg PO QDAY 03/04/16 10/20/18 1 Day Ago ~10/19/18 Previous Rx's Medication Instructions Recorded Last Taken Type Sevelamer Carbonate [Renvela] 800 mg PO TIDWM #60 tablet 07/28/14 1 Day Ago Rx ~10/19/18 cloNIDine [Catapres] 0.3 mg PO TID #90 tablet 09/13/14 1 Day Ago Rx ~10/19/18 hydrALAZINE [Apresoline TAB] 50 mg PO Q8H #90 tab 09/13/14 1 Day Ago Rx ~10/19/18 Metoprolol [Lopressor TAB] 100 mg PO BID #60 tablet 10/20/15 1 Day Ago Rx ~10/19/18 Omeprazole Magnesium [PriLOSEC Otc] 20 mg PO QDAY #10 tablet. 05/28/16 1 Day Ago Rx ~10/19/18 Insulin Glargine [Lantus VIAL] 30 units SUB-Q DAILY #100 units 06/01/16 1 Day Ago Rx ~10/19/18 Famotidine [Pepcid] 20 mg PO DAILY #15 tablet 10/20/18 Unknown Rx Allergies Allergy/AdvReac Type Severity Reaction Status Date / Time No Known Allergies Allergy Verified 12/31/13 07:49 ED Past Medical Hx - Medications Home Medications: Home Medications Medication Instructions Recorded Confirmed Last Taken Type Insulin NPH Human Isophane 10 units SQ TIDWM 04/21/14 10/20/18 1 Day Ago History [HumuLIN N] ~10/19/18 Sevelamer Carbonate [Renvela] 800 mg PO TIDWM #60 tablet 07/28/14 10/20/18 1 Day Ago Rx ~10/19/18 cloNIDine [Catapres] 0.3 mg PO TID #90 tablet 09/13/14 10/20/18 1 Day Ago Rx ~10/19/18 hydrALAZINE [Apresoline TAB] 50 mg PO Q8H #90 tab 09/13/14 10/20/18 1 Day Ago Rx ~10/19/18 Metoprolol [Lopressor TAB] 100 mg PO BID #60 tablet 10/20/15 10/20/18 1 Day Ago Rx ~10/19/18 NIFEdipine XL [Procardia Xl] 60 mg PO QDAY 03/04/16 10/20/18 1 Day Ago History ~10/19/18 Omeprazole Magnesium [PriLOSEC Otc] 20 mg PO QDAY #10 tablet. 05/28/16 10/20/18 1 Day Ago Rx ~10/19/18 Insulin Glargine [Lantus VIAL] 30 units SUB-Q DAILY #100 units 06/01/16 10/20/18 1 Day Ago Rx ~10/19/18 Famotidine [Pepcid] 20 mg PO DAILY #15 tablet 10/20/18 Unknown Rx - Assessment Assessment Interval: Baseline - Level of Consciousness 1a. Level of Consciousness: coma/unresponsive - LOC Questions 1b. LOC Questions: answers no questions correctly - LOC Command 1c. LOC Commands: performs no tasks correctly - Best Gaze 2. Best Gaze: normal - Visual 3. Visual: no visual loss - Facial Palsy 4. Facial Palsy: normal symmetrical movement - Motor Arm 5a. Motor Arm Left: no gravity effort 5b. Motor Arm Right: no gravity effort - Motor Leg 6a. Motor Leg Left: no gravity effort 6b. Motor Leg Right: no gravity effort - Limb Ataxia 7. Limb Ataxia: absent - Sensory 8. Sensory: no response/quadraplegic - Best Language 9. Best Language: coma/unresponsive - Dysarthria 10. Dysarthria: mute/anarrthric - Extinction and Inattention 11. Extinction/Inattention: no abnormality - Scoring Total Score: 26 Stroke Severity: Severe Stroke - Intubation Time Out Performed: Yes Sedative: Etomidate Paralytic: Rocuronium Laryngoscope: Jone Size: 3 ET Tube Size: 7.5 Tube Secured Location: lips Tube Placement Confirmation: visualized tube passing t, equal breath sounds bilat, confirmation by capnometr Patient Tolerated Procedure: well Intubation Complications: none - Lab Data Result diagrams: 05/27/19 21:58 05/27/19 21:58 - Medical Decision Making Patient seen and examined emergency department by me as well patient arrived seizing with decorticate posturing The decision made to intubate the patient She was taken promptly to CT scan CT scan of the head reveals intraventricular head bleed Started on a Cardene drip to control blood pressure Critical Care Time: Yes Critical care time in (mins) excluding proc time.: 60 ED Disposition Clinical Impression: Intracranial bleeding Disposition: DC/TX-70 ANOTHER TYPE HLTHCARE Condition: Stable [facility] [Primary Care Provider] - 3-5 Days <CANDELARIO HATFIELD - Last Filed: 05/28/19 01:29> ED Altered Mental Status HPI - General Source: EMS Mode of arrival: Stretcher Limitations: Altered Mental Status - History of Present Illness Initial Comments: Patient 33-year-old -French female with history of hypertension end- stage renal disease dialysis on Monday presents via [facility] for altered mental status patient given Narcan IV 1 mg in field and found seizures on arrival to ED given ativan 2mg iv in ed, pt is non reposive at this time. Complaint: altered mental status Onset/Timin -: hour(s) Severity: moderate Consistency of Symptoms: waxing and waning Context: unknown Associated Symptoms: seizure, other (AMS ) ED Review of Systems ROS: Stated complaint: AMS Other details as noted in HPI Constitutional: other (AMS ) Eyes: as per HPI ENT: as per HPI Respiratory: denies: cough, shortness of breath, wheezing Cardiovascular: denies: chest pain, palpitations Endocrine: no symptoms reported Gastrointestinal: denies: abdominal pain, nausea, vomiting, diarrhea Genitourinary: denies: urgency, dysuria, discharge Musculoskeletal: denies: back pain, joint swelling, arthralgia Skin: denies: rash, lesions Neurological: other (AMS ) Psychiatric: as per HPI ED Past Medical Hx - Past Medical History Previous Medical History?: Yes Hx Hypertension: Yes Hx Diabetes: Yes (type I) Hx Renal Disease: Yes (ESRD on HD,T-Th-,LUE Shunt) Hx Seizures: Yes (elevated bp) Hx Asthma: Yes Additional medical history: DIALYSIS PT. - Surgical History Past Surgical History?: Yes Additional Surgical History: x2 - Social History Smoking Status: Unknown if ever smoked Substance Use Type: Prescribed ED Physical Exam - General Limitations: No Limitations (right is Charla go as he has a visible left axis. That she's is a dialysis catheter with subcutaneous neuro deficits accident physician for), Altered Mental Status General appearance: obtunded - Head Head exam: Present: normocephalic - Eye Eye exam: Present: EOMI Pupils: Present: normal accommodation - Expanded Eye Exam Expanded Pupils: Regular, Round: Bilateral, Reactive: Bilateral Sclera/Conjunctival: Normal Inspection: Bilateral Posterior chamber: Deferred: Bilateral - ENT ENT exam: Present: mucous membranes moist - Neck Neck exam: Present: normal inspection - Respiratory Respiratory exam: Present: decreased breath sounds - Cardiovascular Cardiovascular Exam: Present: regular rate, normal rhythm, normal heart sounds. Absent: systolic murmur, diastolic murmur, rubs, gallop - GI/Abdominal GI/Abdominal exam: Present: distended. Absent: tenderness, bruit, hernia - Rectal Rectal exam: Absent: deferred (home to the right is to the G dictating is bed availability OKAY DAINA this) - Extremities Exam Extremities exam: Present: normal capillary refill. Absent: pedal edema, joint swelling - Back Exam Back exam: Absent: tenderness, rash noted - Neurological Exam Neurological exam: Present: altered - Expanded Neurological Exam Expanded Neurological exam: Present: total aphasia Speech: Present: total aphasia Cranial nerves: EOM's Intact: Abnormal Right, Gag Reflex: Abnormal Right, Tongue Deviation: Normal, Nystagmus: Abnormal Right Cerebellar function: Finger to Nose: Abnormal Left, Abnormal Right, Heel to Hall: Abnormal Left, Abnormal Right, Romberg: Abnormal Left, Abnormal Right Upper motor neuron: Andres Neglect: Abnormal Left, Abnormal Right, Pronator Drift: Abnormal Left, Abnormal Right, Babinski Sign: Abnormal Left, Abnormal Right, Sensory Extinction: Abnormal Left, Abnormal Right Sensory exam: Upper Extremity Light Touch: Abnormal Right, Abnormal Left, Upper Extremity Pin Prick: Abnormal Left, Abnormal Right, Lower Extremity Light Touch: Abnormal Right, Abnormal Left, Lower Extremity Pin Prick: Abnormal Left, Abnormal Right DTR: bicep (R): 1+, bicep (L): 1+, ankle (R): 1+, ankle (L): 1+ Best Eye Response (Aimee): (1) no response Best Motor Response (Paden): (4) withdraws to pain Best Verbal Response (Paden): (1) no verbal response Paden Total: 6 - Skin Skin exam: Present: warm, dry, intact, normal color - Level of Consciousness 1a. Level of Consciousness: coma/unresponsive ED Course Vital Signs 05/27/19 05/27/19 05/27/19 21:26 21:34 22:30 Temperature 93.6 F L Pulse Rate 92 H 92 H 107 H Respiratory 22 22 Rate Blood Pressure 233/139 237/143 Blood Pressure 233/139 [Right] O2 Sat by Pulse 94 78 L 100 Oximetry 05/27/19 05/27/19 05/27/19 22:45 23:00 23:15 Temperature Pulse Rate 110 H 106 H 102 H Respiratory 18 17 16 Rate Blood Pressure 223/139 171/117 220/129 Blood Pressure [Right] O2 Sat by Pulse 77 L 98 98 Oximetry 05/27/19 05/27/19 05/28/19 23:40 23:45 00:00 Temperature Pulse Rate 101 H 95 H 90 Respiratory 21 19 Rate Blood Pressure 159/89 164/92 Blood Pressure [Right] O2 Sat by Pulse 100 98 Oximetry 05/28/19 05/28/19 05/28/19 00:20 00:30 00:45 Temperature Pulse Rate 88 87 Respiratory 18 18 23 Rate Blood Pressure 164/89 166/87 Blood Pressure [Right] O2 Sat by Pulse 97 93 Oximetry - Reevaluation(s) Reevaluation #1: Call [facility] Dr [facility] accepts patient, will transfer via EMS 05/27/19 23:00 Reevaluation #2: Dr. Yeager advises that he cannot accept at this time as he has no icu beds. will attempt other facility. 05/27/19 23:21 Reevaluation #3: Called [facility] awaiting call back for pt transfer report for pos sible acceptance and transfer 05/27/19 23:31 Reevaluation #4: [facility] accepts patient at this time, [facility] 05/27/19 23:45 - Lab Data Result diagrams: 05/27/19 21:58 05/27/19 21:58 Lab Results 05/27/19 05/27/19 05/27/19 Range/Units 21:58 21:58 23:43 WBC 9.0 (4.5-11.0) K/mm3 RBC 3.73 (3.65-5.03) M/mm3 Hgb 10.2 (10.1-14.3) gm/dl Hct 33.1 (30.3-42.9) % MCV 89 (79-97) fl MCH 28 (28-32) pg MCHC 31 (30-34) % RDW 19.6 H (13.2-15.2) % Plt Count 183 (140-440) K/mm3 PT (12.2-14.9) Sec. INR (0.87-1.13) APTT (24.2-36.6) Sec. POC ABG pH 7.204 L (7.35-7.45) POC ABG pO2 122 H (80-105) POC ABG HCO3 28.3 (22-26 mml/L) POC ABG Total CO2 30 (23-27mmol/L) POC ABG O2 Sat 98 POC ABG Base Excess 0 ((-2) - (+3)mmol/L) FiO2 100 % Sodium 130 L (137-145) mmol/L Potassium 4.1 (3.6-5.0) mmol/L Chloride 85.3 L (98-107) mmol/L Carbon Dioxide 22 (22-30) mmol/L Anion Gap 27 mmol/L BUN 43 H (7-17) mg/dL Creatinine 7.7 H (0.7-1.2) mg/dL Estimated GFR 7 ml/min BUN/Creatinine Ratio 6 % Glucose 738 H* (65-100) mg/dL Lactic Acid (0.7-2.0) mmol/L Calcium 8.4 (8.4-10.2) mg/dL Phosphorus (2.5-4.5) mg/dL Total Bilirubin 1.00 (0.1-1.2) mg/dL AST 38 (5-40) units/L ALT 19 (7-56) units/L Alkaline Phosphatase 303 H (35-129) units/L Troponin T 0.251 H* (0.00-0.029) ng/mL Total Protein 8.9 H (6.3-8.2) g/dL Albumin 4.6 (3.9-5) g/dL Albumin/Globulin Ratio 1.1 % Triglycerides 129 (2-149) mg/dL Cholesterol 181 (50-199) mg/dL LDL Cholesterol Direct 69 (50-130) mg/dL HDL Cholesterol 107 H (40-59) mg/dL Cholesterol/HDL Ratio 1.69 % 05/27/19 05/27/19 05/28/19 Range/Units 23:52 23:56 00:00 WBC (4.5-11.0) K/mm3 RBC (3.65-5.03) M/mm3 Hgb (10.1-14.3) gm/dl Hct (30.3-42.9) % MCV (79-97) fl MCH (28-32) pg MCHC (30-34) % RDW (13.2-15.2) % Plt Count (140-440) K/mm3 PT 14.9 (12.2-14.9) Sec. INR 1.20 H (0.87-1.13) APTT 41.7 H (24.2-36.6) Sec. POC ABG pH (7.35-7.45) POC ABG pO2 (80-105) POC ABG HCO3 (22-26 mml/L) POC ABG Total CO2 (23-27mmol/L) POC ABG O2 Sat POC ABG Base Excess ((-2) - (+3)mmol/L) FiO2 % Sodium (137-145) mmol/L Potassium (3.6-5.0) mmol/L Chloride (98-107) mmol/L Carbon Dioxide (22-30) mmol/L Anion Gap mmol/L BUN (7-17) mg/dL Creatinine (0.7-1.2) mg/dL Estimated GFR ml/min BUN/Creatinine Ratio % Glucose (65-100) mg/dL Lactic Acid 2.70 H* (0.7-2.0) mmol/L Calcium (8.4-10.2) mg/dL Phosphorus 4.20 (2.5-4.5) mg/dL Total Bilirubin (0.1-1.2) mg/dL AST (5-40) units/L ALT (7-56) units/L Alkaline Phosphatase (35-129) units/L Troponin T (0.00-0.029) ng/mL Total Protein (6.3-8.2) g/dL Albumin (3.9-5) g/dL Albumin/Globulin Ratio % Triglycerides (2-149) mg/dL Cholesterol (50-199) mg/dL LDL Cholesterol Direct (50-130) mg/dL HDL Cholesterol (40-59) mg/dL Cholesterol/HDL Ratio % - EKG Data EKG shows normal: sinus rhythm, axis, intervals, QRS complexes, ST-T waves Rate: tachycardia When compared to previous EKG there are: previous EKG unavailable Interpretation: normal EKG - Radiology Data Radiology results: report reviewed, image reviewed ct report reviewe Radiology Acute IC Hemorrhage large - Medical Decision Making pt awaiting transport [facility] Dr. Middleton, [facility] , Neurolosurgery Dr. anderson , discussed same with family member transfer consent obtained, pt awaiting transport via EMS [facility]. [id number]: pt departs ed via [facility] at this time enroute to [facility] for admit to Neurology Critical Care Dr. Middleton , Neurosurgery Dr. Anderson. family members at bedside advised of same, verbalized agreement and understanding of same. - NEXUS Criteria Focal neurological deficit present: Yes Midline spinal tenderness present: No Altered level of consciousness: Yes Intoxication present: No Distracting injury present: No NEXUS results: C-Spine cannot be cleared clinically by these results. Imaging is required. Critical care attestation.: If time is entered above; I have spent that time in minutes in the direct care of this critically ill patient, excluding procedure time. ED Disposition Is pt being admited?: No Does the pt Need Aspirin: No
[2019-05-27 23:12] LABS: Chol/HDL Ratio 1.69 %
[2019-05-27] MEDS ORDERED: PROPOFOL 1,000 MG/100 ML BOTTLE IV ONE (23:13)
--- NOTE | 2019-05-27 23:14 | XRay Report ---
CHEST 1 VIEW 05/27/2019 10:38 PM INDICATION / CLINICAL INFORMATION: Altered mental status. Post ET tube placement. COMPARISON: One view of the chest from 10/21/2018. FINDINGS: SUPPORT DEVICES: An NG tube terminates over the stomach. The tip of an ET tube vertex over the proxim al right main bronchus. A right internal jugular vein perm catheter terminates over the right atrium. HEART / MEDIASTINUM: No distinct abnormality. LUNGS / PLEURA: There is dense generalized opacification of the lungs. No pneumothorax. ADDITIONAL FINDINGS: No significant additional findings. IMPRESSION: 1. Malpositioned ET tube as above. Retraction of the tube by 2 cm is recommended. 2. Extensive bilateral airspace opacities are nonspecific, but could represent atelectasis, pleural e ffusions, pneumonia or edema. Signer Name: Nirmal Mayer MD Signed: 05/27/2019 11:09 PM Workstation Name: [id number]
[2019-05-27] MEDS ORDERED: MANNITOL 20% 500 ML IV ONE (23:42)
[2019-05-27] MEDS ORDERED: PROPOFOL 1,000 MG/100 ML BOTTLE IV SCH (23:45)
[2019-05-27] MEDS ORDERED: DEXTROSE 50% IN WATER (25GM) 50 ML SYRINGE IV PRN (23:57)
[2019-05-28] MEDS ORDERED: SODIUM CHLORIDE 3% 250 ML IV ONE (00:16)
[2019-05-28 00:40] LABS: INR 1.2 (0.87-1.13)
[2019-05-28 00:41] LABS: Partial Thromboplastin Time 41.7 Sec. (24.2-36.6)
[2019-05-28 00:46] VITALS: BP 166/87
== END 2019-05-28 02:00 | disposition other institution (70) ==
LOC: ED 21:21
DX: I61.9 Nontraumatic intracerebral hemorrhage, unspecified (principal); I12.0 Hypertensive chronic kidney disease with stage 5 chronic kidney disease or end stage renal disease; N18.6 End stage renal disease; E10.22 Type 1 diabetes mellitus with diabetic chronic kidney disease; Z99.2 Dependence on renal dialysis; J45.909 Unspecified asthma, uncomplicated; Z79.4 Long term (current) use of insulin
CPT/HCPCS: 31500; 36415; 70450; 71045; 80053; 80061; 82140; 82803; 82962; 83880; 84100; 84484; 85027; 85610; 85730; 87040; 87070; 87205; 93005; 93010; 96365; 96367; 96368; 96375; 99291; J0696; J1953; J2060; J2150; J2704; J3370; J7040; J7050; 94002; J1815